=== PATIENT | female | born 1980 | race Caucasian/White ===

== ENCOUNTER 2020-09-29 19:58 | Emergency (ER) | payer BC, MEDICAID ==
[~2020-09-29] VITALS: Ht 160 cm; Wt 75.7 kg
[2020-09-29 20:29] VITALS: BP 110/54
== END 2020-09-29 21:36 | disposition left against medical advice (07) ==
LOC: MED 19:58
DX: R10.9 Unspecified abdominal pain (principal); Z53.21 Procedure and treatment not carried out due to patient leaving prior to being seen by health care provider
CPT/HCPCS: 81002; 81025